=== PATIENT | male | born 1945 | race African-American/Black ===

== ENCOUNTER 2016-04-17 12:35 | Emergency (ER) | payer MEDICARE ==
[~2016-04-17] VITALS: Ht 172.7 cm; Wt 71.2 kg
[~2016-04-17 12:35] MED LIST: ASP81EC PO; ATOR20TA50 PO; Atorvastatin Calcium PO; CAR3125T PO; DIG0125T PO; ENA2.5T PO; FUR20T PO; FUR40T PO; LIS10T PO; MET25T PO; PANT40TA2 PO; POTA10TA34 PO; POTA20TA53 PO; SPIR25TA88 PO
[2016-04-17 13:41] VITALS: BP 135/95
== END 2016-04-17 13:32 | disposition home or self-care (01) ==
LOC: ER 12:38
DX: J20.9 Acute bronchitis, unspecified (principal); I48.91 Unspecified atrial fibrillation; I50.9 Heart failure, unspecified; F17.210 Nicotine dependence, cigarettes, uncomplicated

== ENCOUNTER 2016-09-23 08:29 | Inpatient (IN) | payer MEDICARE, MEDICAID ==
[2016-09-22 21:00] VITALS: BP 131/71
[~2016-09-23] VITALS: Ht 172.7 cm; Wt 73.0 kg
[2016-09-23] MEDS ORDERED: FUROSEMIDE 40 MG/4 ML VIAL IV ONE (09:30)
[2016-09-23 10:05] LABS: Basophils # (auto) 0.1 uL; Basophils % (auto) 0.8 % (0.0-2.0); CONDITION Y; Eosinophils # (auto) 0 uL; Hemoglobin 14.3 g/dL (13.5-17.5); Lymphocytes # (auto) 1.6 uL; Lymphocytes % (auto) 22.9 % (10.0-50.0); Mean Corpuscular Hemoglobin 32.8 pg (28.0-32.0); Mean Corpuscular Hgb Conc. 33.1 g/dL (32.0-36.0); Mean Corpuscular Volume 99.2 fL (80.0-100.0); Monocytes # (auto) 0.7 uL; Monocytes % (auto) 10.2 % (0.0-12.0); Neutrophils # (auto) 4.5 uL; Neutrophils % (auto) 66.1 % (37.0-80.0); Platelet Count (auto) 152 10^3/uL (140-450); Red Cell Distribution Width 16.5 % (11.6-16.0); White Blood Cell 6.8 10^3/uL (4.4-10.8)
[2016-09-23 10:12] LABS: Albumin 2.8 g/dL (3.4-5.0); Bilirubin, Total 0.8 mg/dL (0.2-1.0); Calcium 8.7 mg/dL (8.5-10.1); Magnesium 2.3 mg/dL (1.6-2.6); Potassium 4.2 mmol/L (3.5-5.1); Total Protein 5.9 g/dL (6.4-8.2)
[2016-09-23 10:18] LABS: B-Type Natriuretic Peptide 2491.31 pg/mL (0-100)
[2016-09-23 10:22] LABS: Urine Bilirubin Negative (Negative); Urine Color Yellow (Yellow); Urine Glucose Normal (Normal); Urine Ketone Negative (Negative); Urine Mucus FEW (None Seen); Urine Nitrite Negative (Negative); Urine RBC 1 /hpf (0 - 3); Urine Squamous Epithelial Cell FEW /hpf (<5); Urine Urobilinogen Normal (Negative); Urine pH 5.5 (5.0-8.0)
[2016-09-23 10:25] LABS: Urine Blood 1+ /uL (Negative)
[2016-09-23] MEDS ORDERED: HYDROcodone-ACET 5/325MG TAB PO PRN (10:30)
[2016-09-23] MEDS ORDERED: HYDROmorphone HCL 2 MG/ML VL IV PRN (10:30)
[2016-09-23] MEDS ORDERED: PROMETHAZINE HCL 25 MG/ML 1ML IV PRN (10:30)
[2016-09-23] MEDS ORDERED: DEXTROSE (50%) 50ML SYRG IV PRN (10:30)
[2016-09-23] MEDS ORDERED: ALBUTEROL SULF 2.5 MG/0.5ML(0.5%) NEB SOLN NEB PRN (10:30)
[2016-09-23] MEDS ORDERED: LORazepam 0.5 MG TAB PO PRN (10:30)
[2016-09-23] MEDS ORDERED: ACETAMINOPHEN 500 MG TAB PO PRN (10:30)
[2016-09-23] MEDS ORDERED: MORPHINE SULF INJ 2 MG/ML SYRINGE 1ML IV PRN (10:30)
[2016-09-23] MEDS ORDERED: NITROGLYCERIN 0.4 MG SL TAB SL PRN (10:30)
[2016-09-23] MEDS ORDERED: ENALAPRIL MALEATE 2.5 MG TAB PO ONE (11:00)
[2016-09-23] MEDS ORDERED: CARVEDILOL 3.125 MG TAB PO ONE (11:00)
[2016-09-23] MEDS ORDERED: ASPirin 81 mg TAB PO ONE (11:00)
[2016-09-23] MEDS: LEVOFLOXACIN 500MG 100 ML IV SCH (11:06)
[2016-09-23] MEDS: ENOXAPARIN SOD 40 MG/0.4 ML SYRINGE SC SCH (11:14)
[2016-09-23] MEDS: NITROGLYCERIN 0.2MG/HR TOPICAL PATCH TD SCH (11:14)
[2016-09-23] MEDS: ACCU-CHEK COMFORT CURVE STRIP VI SCH ×3 (11:35→22:19)
[2016-09-23] MEDS: InsuLIN REG 1unit/0.01ml Soln (100units/ml) SC SCH ×3 (11:37→22:00)
[2016-09-23] MEDS: ALBUTEROL SULF 2.5 MG/0.5ML(0.5%) NEB SOLN NEB SCH ×2 (11:40→18:42)
[2016-09-23] MEDS: IPRATROPIUM BROM 0.5 MG/2.5ML INH SOL NEB SCH ×2 (11:40→18:42)
[2016-09-23] MEDS: SODIUM CHLOR 0.9% PF (SALINE LOCK) 10ML VIAL IV SCH ×2 (14:10→22:19)
[2016-09-23 20:53] VITALS: BP 131/71
[2016-09-23] MEDS: ATORVASTATIN 20 MG TAB PO SCH (22:19)
[2016-09-23] MEDS: CARVEDILOL 3.125 MG TAB PO SCH (22:20)
[2016-09-24] VITALS (8 sets, daily range): BP systolic 104–132; BP diastolic 71–94
[2016-09-24] MEDS: TEMAZEPAM 15 MG CAP PO PRN (00:22)
[2016-09-24] MEDS: ALBUTEROL SULF 2.5 MG/0.5ML(0.5%) NEB SOLN NEB SCH ×4 (00:42→18:56)
[2016-09-24] MEDS: IPRATROPIUM BROM 0.5 MG/2.5ML INH SOL NEB SCH ×4 (00:42→18:56)
[2016-09-24] MEDS: SODIUM CHLOR 0.9% PF (SALINE LOCK) 10ML VIAL IV SCH ×3 (05:24→21:18)
[2016-09-24] MEDS: ACCU-CHEK COMFORT CURVE STRIP VI SCH ×4 (05:25→21:18)
[2016-09-24] MEDS: InsuLIN REG 1unit/0.01ml Soln (100units/ml) SC SCH ×4 (06:23→21:17)
[2016-09-24 06:29] LABS: Basophils # (auto) 0 uL; Basophils % (auto) 0.3 % (0.0-2.0); CONDITION Y; Eosinophils # (auto) 0 uL; Eosinophils % (auto) 0.5 % (0.0-7.0); Hematocrit 45.8 % (41.0-53.0); Lymphocytes # (auto) 2.2 uL; Lymphocytes % (auto) 26.7 % (10.0-50.0); Mean Corpuscular Hemoglobin 32.6 pg (28.0-32.0); Mean Corpuscular Hgb Conc. 32.7 g/dL (32.0-36.0); Mean Corpuscular Volume 99.8 fL (80.0-100.0); Monocytes # (auto) 1.3 uL; Monocytes % (auto) 15.5 % (0.0-12.0); Neutrophils # (auto) 4.6 uL; Platelet Count (auto) 147 10^3/uL (140-450); White Blood Cell 8.1 10^3/uL (4.4-10.8)
[2016-09-24 06:35] LABS: Albumin 2.6 g/dL (3.4-5.0); BUN/Creatinine Ratio 20.2; Bilirubin, Total 0.9 mg/dL (0.2-1.0); Calcium 9.2 mg/dL (8.5-10.1); Potassium 4.5 mmol/L (3.5-5.1); Total Protein 5.8 g/dL (6.4-8.2)
[2016-09-24 07:35] LABS: B-Type Natriuretic Peptide 939 pg/mL (0-100)
[2016-09-24] MEDS ORDERED: ENOXAPARIN SOD 40 MG/0.4 ML SYRINGE SC SCH (10:00)
[2016-09-24] MEDS: POTASSIUM CHL 20 Meq TABLET PO SCH (10:02)
[2016-09-24] MEDS: ENALAPRIL MALEATE 2.5 MG TAB PO SCH (10:03)
[2016-09-24] MEDS: ASPirin 81 mg TAB PO SCH (10:03)
[2016-09-24] MEDS: CARVEDILOL 3.125 MG TAB PO SCH ×2 (10:04→21:57)
[2016-09-24] MEDS: ENOXAPARIN SOD 40 MG/0.4 ML SYRINGE SC SCH (10:05)
[2016-09-24] MEDS: NITROGLYCERIN 0.2MG/HR TOPICAL PATCH TD SCH (10:08)
[2016-09-24] MEDS: LEVOFLOXACIN 500MG 100 ML IV SCH (10:08)
[2016-09-24] MEDS: FUROSEMIDE 40 MG/4 ML VIAL IV SCH (10:10)
[2016-09-24] MEDS: ATORVASTATIN 20 MG TAB PO SCH (21:57)
[2016-09-25] MEDS: ALBUTEROL SULF 2.5 MG/0.5ML(0.5%) NEB SOLN NEB SCH ×4 (01:16→18:39)
[2016-09-25] MEDS: IPRATROPIUM BROM 0.5 MG/2.5ML INH SOL NEB SCH ×4 (01:16→18:38)
[2016-09-25 05:30] VITALS: BP 141/89
[2016-09-25] MEDS: SODIUM CHLOR 0.9% PF (SALINE LOCK) 10ML VIAL IV SCH ×3 (05:53→22:04)
[2016-09-25] MEDS: ACCU-CHEK COMFORT CURVE STRIP VI SCH ×4 (05:53→22:04)
[2016-09-25] MEDS: InsuLIN REG 1unit/0.01ml Soln (100units/ml) SC SCH ×4 (06:16→22:00)
[2016-09-25] MEDS: POTASSIUM CHL 20 Meq TABLET PO SCH (10:36)
[2016-09-25] MEDS: ASPirin 81 mg TAB PO SCH (10:36)
[2016-09-25] MEDS: LEVOFLOXACIN 500MG 100 ML IV SCH (10:36)
[2016-09-25] MEDS: FUROSEMIDE 40 MG/4 ML VIAL IV SCH (10:42)
[2016-09-25] MEDS: ENALAPRIL MALEATE 2.5 MG TAB PO SCH (10:43)
[2016-09-25] MEDS: NITROGLYCERIN 0.2MG/HR TOPICAL PATCH TD SCH (10:45)
[2016-09-25] MEDS: ENOXAPARIN SOD 40 MG/0.4 ML SYRINGE SC SCH (10:45)
[2016-09-25] MEDS: CARVEDILOL 3.125 MG TAB PO SCH ×2 (10:46→22:04)
[2016-09-25 13:00] VITALS: BP 126/72
[2016-09-25 14:56] LABS: Urine Bilirubin Negative (Negative); Urine Color Yellow (Yellow); Urine Glucose Normal (Normal); Urine Ketone Negative (Negative); Urine Nitrite Negative (Negative); Urine RBC 725 /hpf (0 - 3); Urine Urobilinogen Normal (Negative); Urine pH 6.5 (5.0-8.0)
[2016-09-25 14:57] LABS: Urine Blood 3+ /uL (Negative)
[2016-09-25 17:00] VITALS: BP 115/61
[2016-09-25 20:00] VITALS: BP 124/88
[2016-09-25 21:39] VITALS: BP 124/88
[2016-09-25] MEDS: ATORVASTATIN 20 MG TAB PO SCH (22:04)
[2016-09-26] MEDS: IPRATROPIUM BROM 0.5 MG/2.5ML INH SOL NEB SCH ×4 (00:15→19:30)
[2016-09-26] MEDS: ALBUTEROL SULF 2.5 MG/0.5ML(0.5%) NEB SOLN NEB SCH ×4 (00:15→19:30)
[2016-09-26 05:12] VITALS: BP 136/95
[2016-09-26] MEDS: SODIUM CHLOR 0.9% PF (SALINE LOCK) 10ML VIAL IV SCH ×3 (05:55→23:03)
[2016-09-26] MEDS: InsuLIN REG 1unit/0.01ml Soln (100units/ml) SC SCH ×5 (06:10→22:00)
[2016-09-26] MEDS: ACCU-CHEK COMFORT CURVE STRIP VI SCH ×4 (06:11→22:14)
[2016-09-26] MEDS ORDERED: GASTROGRAFIN 30 ML SOL ONE (07:12)
[2016-09-26 09:00] VITALS: BP 139/103
[2016-09-26 10:07] VITALS: BP 135/90
[2016-09-26 10:14] LABS: Potassium 4.4 mmol/L (3.5-5.1)
[2016-09-26] MEDS: FUROSEMIDE 40 MG/4 ML VIAL IV SCH ×2 (10:32→17:54)
[2016-09-26] MEDS: LEVOFLOXACIN 500MG 100 ML IV SCH (10:32)
[2016-09-26 13:00] VITALS: BP 143/96
[2016-09-26] MEDS ORDERED: ENOXAPARIN SOD 80 MG/0.8ML SYRINGE SC ONE (14:45)
[2016-09-26] MEDS: CARVEDILOL 3.125 MG TAB PO SCH ×2 (15:10→23:03)
[2016-09-26] MEDS: POTASSIUM CHL 20 Meq TABLET PO SCH ×2 (15:10→23:02)
[2016-09-26] MEDS: ENALAPRIL MALEATE 2.5 MG TAB PO SCH ×2 (15:10→23:03)
[2016-09-26 17:00] VITALS: BP 118/69
[2016-09-26 22:00] VITALS: BP 110/63
[2016-09-26] MEDS: ATORVASTATIN 20 MG TAB PO SCH (23:02)
[2016-09-27] MEDS: ALBUTEROL SULF 2.5 MG/0.5ML(0.5%) NEB SOLN NEB SCH ×4 (00:30→19:17)
[2016-09-27] MEDS: IPRATROPIUM BROM 0.5 MG/2.5ML INH SOL NEB SCH ×4 (00:30→19:17)
[2016-09-27 01:09] VITALS: BP 110/63
[2016-09-27 05:00] VITALS: BP 143/100
[2016-09-27 05:11] LABS: Basophils # (auto) 0 uL; Basophils % (auto) 0.4 % (0.0-2.0); CONDITION Y; Eosinophils # (auto) 0.1 uL; Eosinophils % (auto) 0.9 % (0.0-7.0); Hematocrit 48.7 % (41.0-53.0); Hemoglobin 15.7 g/dL (13.5-17.5); Lymphocytes # (auto) 2.1 uL; Lymphocytes % (auto) 33.2 % (10.0-50.0); Mean Corpuscular Hemoglobin 32.4 pg (28.0-32.0); Mean Corpuscular Hgb Conc. 32.3 g/dL (32.0-36.0); Mean Corpuscular Volume 100.5 fL (80.0-100.0); Mean Platelet Volume 10.7 fL (7.4-10.4); Monocytes # (auto) 0.8 uL; Monocytes % (auto) 13.6 % (0.0-12.0); Neutrophils # (auto) 3.2 uL; Neutrophils % (auto) 51.9 % (37.0-80.0); Platelet Count (auto) 162 10^3/uL (140-450); Red Cell Distribution Width 15.8 % (11.6-16.0); White Blood Cell 6.2 10^3/uL (4.4-10.8)
[2016-09-27 05:25] LABS: INR 1.2 (0.9-1.15)
[2016-09-27 05:27] LABS: Albumin 2.5 g/dL (3.4-5.0); BUN/Creatinine Ratio 17.3; Calcium 9.2 mg/dL (8.5-10.1); Potassium 4.5 mmol/L (3.5-5.1); Prothrombin Time 13.1 sec (9.37-12.3)
[2016-09-27] MEDS: SODIUM CHLOR 0.9% PF (SALINE LOCK) 10ML VIAL IV SCH ×3 (06:20→22:33)
[2016-09-27] MEDS: FUROSEMIDE 40 MG/4 ML VIAL IV SCH ×2 (06:20→18:00)
[2016-09-27] MEDS: ACCU-CHEK COMFORT CURVE STRIP VI SCH ×4 (07:00→22:00)
[2016-09-27] MEDS: InsuLIN REG 1unit/0.01ml Soln (100units/ml) SC SCH ×4 (07:00→22:00)
[2016-09-27 07:51] VITALS: BP 137/82
[2016-09-27] MEDS ORDERED: fentaNYL CITRATE 100 MCG/2 ML VL IV ONE (08:00)
[2016-09-27] MEDS ORDERED: MIDAZOLAM HCL 5 MG/ML-1ML VIAL IV ONE (08:00)
[2016-09-27] MEDS ORDERED: LIDOCAINE VISCOUS 2% 15ML UD PO ONE (08:00)
[2016-09-27 08:06] LABS: PSA Free 0.44 ng/mL; Prostate Specific Antigen 3.7 ng/mL (0.0-4.0)
[2016-09-27] MEDS ORDERED: NALOXONE HCL 0.4 MG/ML VIAL ONE (08:09)
[2016-09-27] MEDS ORDERED: FLUMAZENIL 0.1 MG/ML INJ 10ML MDV IV ONE (08:09)
[2016-09-27] MEDS ORDERED: MIDAZOLAM HCL 1MG/1ML-2 ML VIAL ONE (08:10)
[2016-09-27] MEDS ORDERED: IODIXANOL 320MG/ML 100ML BTL IV ONE (09:41)
[2016-09-27] MEDS ORDERED: LIDOCAINE 2%HCL (LOCAL ANESTH.) INJ 20ML MDV ONE (09:41)
[2016-09-27] MEDS: ENALAPRIL MALEATE 2.5 MG TAB PO SCH ×2 (10:00→22:30)
[2016-09-27] MEDS: CARVEDILOL 3.125 MG TAB PO SCH ×2 (10:00→22:31)
[2016-09-27] MEDS: LEVOFLOXACIN 500MG 100 ML IV SCH (10:00)
[2016-09-27] MEDS: POTASSIUM CHL 20 Meq TABLET PO SCH ×2 (10:00→22:31)
[2016-09-27] MEDS ORDERED: VERAPAMIL 2.5MG/ML INJ 2ML VIAL IV ONE (10:16)
[2016-09-27] MEDS ORDERED: SODIUM CHL 0.9% 0 ML ONE (10:16)
[2016-09-27] MEDS ORDERED: ANGIOMAX 250 MG VIAL IV ONE (10:16)
[2016-09-27] MEDS ORDERED: HEPARIN SODIUM (PORCINE) 5000 UNITS/ML 1ML VIAL ONE (10:40)
[2016-09-27 12:50] VITALS: BP 144/94
[2016-09-27 16:35] VITALS: BP 122/81
[2016-09-27 22:00] VITALS: BP 116/71
[2016-09-27] MEDS: ATORVASTATIN 20 MG TAB PO SCH (22:30)
[2016-09-28] MEDS: IPRATROPIUM BROM 0.5 MG/2.5ML INH SOL NEB SCH ×4 (00:20→19:05)
[2016-09-28] MEDS: ALBUTEROL SULF 2.5 MG/0.5ML(0.5%) NEB SOLN NEB SCH ×4 (00:20→19:05)
[2016-09-28 05:00] VITALS: BP 123/78
[2016-09-28 06:21] LABS: Basophils # (auto) 0 uL; Basophils % (auto) 0.4 % (0.0-2.0); CONDITION Y; Eosinophils # (auto) 0.1 uL; Eosinophils % (auto) 1.9 % (0.0-7.0); Hemoglobin 15.9 g/dL (13.5-17.5); Lymphocytes # (auto) 1.7 uL; Lymphocytes % (auto) 28.9 % (10.0-50.0); Mean Corpuscular Hemoglobin 32.5 pg (28.0-32.0); Mean Corpuscular Hgb Conc. 32.5 g/dL (32.0-36.0); Monocytes # (auto) 0.7 uL; Monocytes % (auto) 11.8 % (0.0-12.0); Neutrophils # (auto) 3.3 uL; Platelet Count (auto) 172 10^3/uL (140-450); Red Cell Distribution Width 15.9 % (11.6-16.0); White Blood Cell 5.8 10^3/uL (4.4-10.8)
[2016-09-28] MEDS: ACCU-CHEK COMFORT CURVE STRIP VI SCH ×4 (06:32→22:00)
[2016-09-28] MEDS: InsuLIN REG 1unit/0.01ml Soln (100units/ml) SC SCH ×4 (06:32→22:00)
[2016-09-28] MEDS: SODIUM CHLOR 0.9% PF (SALINE LOCK) 10ML VIAL IV SCH ×3 (06:37→22:55)
[2016-09-28] MEDS: FUROSEMIDE 40 MG/4 ML VIAL IV SCH ×2 (06:37→09:30)
[2016-09-28 07:01] LABS: BUN/Creatinine Ratio 16.7; Calcium 9.2 mg/dL (8.5-10.1); Potassium 4.4 mmol/L (3.5-5.1)
[2016-09-28 07:06] LABS: Prostate Specific Antigen 3.3 ng/mL (0.0-4.0)
[2016-09-28 08:00] VITALS: BP 123/78
[2016-09-28 08:06] LABS: PSA Free 0.46 ng/mL
[2016-09-28 09:00] VITALS: BP 130/53
[2016-09-28] MEDS: AMOXICILLIN/CLAVUL 875 MG TAB PO SCH ×2 (09:30→22:47)
[2016-09-28] MEDS: ENALAPRIL MALEATE 2.5 MG TAB PO SCH ×2 (09:31→22:00)
[2016-09-28] MEDS: CARVEDILOL 3.125 MG TAB PO SCH ×2 (09:31→22:50)
[2016-09-28] MEDS: POTASSIUM CHL 20 Meq TABLET PO SCH (09:31)
[2016-09-28 12:34] VITALS: BP 104/69
[2016-09-28 17:00] VITALS: BP 100/55
[2016-09-28 22:00] VITALS: BP 97/51
[2016-09-28] MEDS: ATORVASTATIN 20 MG TAB PO SCH (22:47)
[2016-09-28] MEDS: TEMAZEPAM 15 MG CAP PO PRN (22:50)
[2016-09-29] MEDS: IPRATROPIUM BROM 0.5 MG/2.5ML INH SOL NEB SCH ×3 (00:15→12:10)
[2016-09-29] MEDS: ALBUTEROL SULF 2.5 MG/0.5ML(0.5%) NEB SOLN NEB SCH ×3 (00:15→12:10)
[2016-09-29 05:00] VITALS: BP 122/75
[2016-09-29] MEDS: InsuLIN REG 1unit/0.01ml Soln (100units/ml) SC SCH ×3 (05:37→17:00)
[2016-09-29] MEDS: SODIUM CHLOR 0.9% PF (SALINE LOCK) 10ML VIAL IV SCH ×2 (06:00→13:13)
[2016-09-29] MEDS: ACCU-CHEK COMFORT CURVE STRIP VI SCH ×3 (06:43→17:00)
[2016-09-29 06:53] LABS: Potassium 4.3 mmol/L (3.5-5.1)
[2016-09-29 07:10] LABS: BUN/Creatinine Ratio 18.9
[2016-09-29 08:00] VITALS: BP 127/82
[2016-09-29 09:00] VITALS: BP 127/82
[2016-09-29] MEDS ORDERED: fentaNYL CITRATE 100 MCG/2 ML VL ONE (10:47)
[2016-09-29] MEDS ORDERED: SODIUM CHLORIDE LOCK 10 ML ONE (10:47)
[2016-09-29] MEDS ORDERED: MIDAZOLAM HCL 1MG/1ML-2 ML VIAL ONE (10:47)
[2016-09-29] MEDS ORDERED: KETAMINE HCL 1 ML ONE (10:50)
[2016-09-29] MEDS ORDERED: LIDOCAINE 2% JELLY 11ml (GLYDO) ONE (10:50)
[2016-09-29] MEDS ORDERED: ceFAZolin 1GM/50ML D5W 50 ML IV ONE (10:54)
[2016-09-29] MEDS ORDERED: ACCU-CHEK COMFORT CURVE STRIP VI ONE (11:45)
[2016-09-29] MEDS ORDERED: HYDROmorphone HCL 2 MG/ML VL IV PRN (11:45)
[2016-09-29] MEDS ORDERED: METOCLOPRAMIDE HCL 5MG/ml INJ 2ml VIAL IV ONE (11:45)
[2016-09-29] MEDS: FUROSEMIDE 40 MG/4 ML VIAL IV SCH (12:31)
[2016-09-29] MEDS: POTASSIUM CHL 20 Meq TABLET PO SCH (12:32)
[2016-09-29] MEDS: ENALAPRIL MALEATE 2.5 MG TAB PO SCH (12:32)
[2016-09-29] MEDS: AMOXICILLIN/CLAVUL 875 MG TAB PO SCH (12:32)
[2016-09-29 13:00] VITALS: BP 136/89
[2016-09-29 16:12] VITALS: BP 136/89
== END 2016-09-29 17:08 | DRG 280 ==
LOC: ER 08:29 → EDUNIT# 08:30 → TELE 08:30 → TELE-EAST 20:57
PROVIDERS: ADMIT Internal Medicine; ATTEND Internal Medicine
PROC: B2111ZZ Fluoroscopy of Multiple Coronary Arteries using Low Osmolar Contrast (ICD-10-PCS; principal; 2016-09-27)
PROC: B246ZZ4 Ultrasonography of Right and Left Heart, Transesophageal (ICD-10-PCS; 2016-09-27)
PROC: 4A023N7 Measurement of Cardiac Sampling and Pressure, Left Heart, Percutaneous Approach (ICD-10-PCS; 2016-09-27)
DX: I21.4 Non-ST elevation (NSTEMI) myocardial infarction (principal); I50.41 Acute combined systolic (congestive) and diastolic (congestive) heart failure; J18.9 Pneumonia, unspecified organism; I13.0 Hypertensive heart and chronic kidney disease with heart failure and stage 1 through stage 4 chronic kidney disease, or unspecified chronic kidney disease; E44.0 Moderate protein-calorie malnutrition; R07.9 Chest pain, unspecified; J44.9 Chronic obstructive pulmonary disease, unspecified; N18.9 Chronic kidney disease, unspecified; R33.9 Retention of urine, unspecified; N43.3 Hydrocele, unspecified; N50.89 Other specified disorders of the male genital organs
CPT/HCPCS: 36415; 51702; 71010; 71020; 74176; 76775; 76870; 80048; 80053; 80061; 80307; 81001; 82040; 82550; 82962; 83036; 83735; 83880; 84154; 84443; 84484; 85025; 85379; 85610; 85652; 86141; 86850; 86900; 86901; 87493; 93005; 93306; 93312; 94640; 96374; 97110; 97116; 97163; 97530; 99152; J0690; J1956; J2250; Q9967

== ENCOUNTER 2017-01-06 14:03 | Inpatient (IN) | payer MEDICARE, MEDICAID ==
[~2017-01-06] VITALS: Ht 172.7 cm; Wt 83.3 kg
[~2017-01-06 14:03] MED LIST changes: +ASPI81CH43 PO; +ENA10T PO; +FURO40TA4 PO; +LEVO500T21 PO; +NITR-48 PO; +SACC250C PO
[2017-01-06 14:35] LABS: Basophils # (auto) 0.1 uL; Basophils % (auto) 0.8 % (0.0-2.0); Eosinophils # (auto) 0 uL; Eosinophils % (auto) 0.6 % (0.0-7.0); Hemoglobin 11.6 g/dL (13.5-17.5); Lymphocytes # (auto) 1.9 uL; Lymphocytes % (auto) 29.2 % (10.0-50.0); Mean Corpuscular Hemoglobin 32.6 pg (28.0-32.0); Mean Corpuscular Hgb Conc. 32.4 g/dL (32.0-36.0); Mean Corpuscular Volume 100.8 fL (80.0-100.0); Monocytes # (auto) 1.2 uL; Monocytes % (auto) 17.8 % (0.0-12.0); Neutrophils # (auto) 3.4 uL; Neutrophils % (auto) 51.6 % (37.0-80.0); Nucleated Red Blood Cells % 0.1 %; Platelet Count (auto) 119 10^3/uL (140-450); Red Blood Cells 3.57 10^6/uL (4.5-5.90); Red Cell Distribution Width 17.6 % (11.8-14.3); White Blood Cell 6.7 10^3/uL (4.4-10.8)
[2017-01-06 15:03] LABS: BUN/Creatinine Ratio 21.6; Bilirubin, Total 0.7 mg/dL (0.2-1.0); Calcium 9.2 mg/dL (8.5-10.1); Potassium 4.8 mmol/L (3.5-5.1); Total Protein 7.5 g/dL (6.4-8.2)
[2017-01-06] MEDS ORDERED: cefTRIAXone 1GM/50ML D5W 50 ML IV ONE (17:15)
[2017-01-06] MEDS ORDERED: AZITHROMYCIN 500MG/ 250ML 250 ML IV ONE ×2 (17:15→22:30)
[2017-01-06] MEDS ORDERED: FUROSEMIDE 40 MG/4 ML VIAL IV ONE (17:15)
[2017-01-06] MEDS ORDERED: DEXTROSE (50%) 50ML SYRG IV PRN (21:15)
[2017-01-06] MEDS ORDERED: MORPHINE SULFATE 10 MG/ML INJ 1ML SDV IV PRN (21:15)
[2017-01-06 21:19] LABS: Urine WBC None Seen /hpf (0 - 3)
[2017-01-06] MEDS ORDERED: ASPirin 81 mg TAB PO ONE (21:30)
[2017-01-06] MEDS: InsuLIN REG 1unit/0.01ml Soln (100units/ml) SC SCH (21:43)
[2017-01-06] MEDS: ACCU-CHEK COMFORT CURVE STRIP VI SCH (21:43)
[2017-01-06] MEDS ORDERED: ONDANSETRON HCL 4 MG/2 ML VIAL IV PRN (21:45)
[2017-01-06] MEDS ORDERED: TEMAZEPAM 15 MG CAP PO PRN (21:45)
[2017-01-06] MEDS ORDERED: ACETAMINOPHEN 500 MG TAB PO PRN (21:45)
[2017-01-06] MEDS: CARVEDILOL 3.125 MG TAB PO SCH (21:47)
[2017-01-06] MEDS: ATORVASTATIN 20 MG TAB PO SCH (21:48)
[2017-01-06 21:52] LABS: Urine Amorphous Crystal MOD /hpf (None Seen); Urine Bacteria FEW /hpf (None Seen); Urine Blood Negative /uL (Negative); Urine Mucus FEW (None Seen); Urine Specific Gravity 1.028 (1.001-1.035)
[2017-01-06] MEDS: LEVOFLOXACIN 500MG 100 ML IV SCH (22:00)
[2017-01-06 22:30] VITALS: BP 109/52
[2017-01-06] MEDS: HYDROcodone-ACET 5/325MG TAB PO PRN (22:56)
[2017-01-06 23:29] VITALS: BP 109/52
[2017-01-07] VITALS (7 sets, daily range): BP systolic 106–118; BP diastolic 70–78
[2017-01-07] MEDS: ENALAPRIL MALEATE 2.5 MG TAB PO SCH ×3 (00:15→22:26)
[2017-01-07] MEDS ORDERED: NITR-52 PO (01:41)
[2017-01-07] MEDS ORDERED: FURO40TA4 PO (01:41)
[2017-01-07] MEDS ORDERED: CARV3.1240 PO (01:41)
[2017-01-07] MEDS ORDERED: ENAL2.5T PO (01:41)
[2017-01-07] MEDS ORDERED: ATOR10TA52 PO (01:41)
[2017-01-07] MEDS ORDERED: POTA10TA51 PO (01:41)
[2017-01-07] MEDS: InsuLIN REG 1unit/0.01ml Soln (100units/ml) SC SCH ×4 (06:22→22:00)
[2017-01-07] MEDS: ACCU-CHEK COMFORT CURVE STRIP VI SCH ×4 (06:23→22:27)
[2017-01-07 06:31] LABS: Basophils # (auto) 0 uL; Basophils % (auto) 0.4 % (0.0-2.0); Eosinophils # (auto) 0.1 uL; Eosinophils % (auto) 1.4 % (0.0-7.0); Hematocrit 36.7 % (41.0-53.0); Hemoglobin 11.9 g/dL (13.5-17.5); Lymphocytes % (auto) 32.4 % (10.0-50.0); Mean Corpuscular Hemoglobin 32.5 pg (28.0-32.0); Mean Corpuscular Hgb Conc. 32.4 g/dL (32.0-36.0); Mean Corpuscular Volume 100.2 fL (80.0-100.0); Monocytes # (auto) 0.8 uL; Monocytes % (auto) 12.8 % (0.0-12.0); Neutrophils # (auto) 3.2 uL; Nucleated Red Blood Cells % 0.3 %; Platelet Count (auto) 123 10^3/uL (140-450); Red Blood Cells 3.66 10^6/uL (4.5-5.90); Red Cell Distribution Width 17.5 % (11.8-14.3); White Blood Cell 6.1 10^3/uL (4.4-10.8)
[2017-01-07 06:33] LABS: BUN/Creatinine Ratio 25.8; Calcium 9.3 mg/dL (8.5-10.1)
[2017-01-07] MEDS: cefTRIAXone 1GM/50ML D5W 50 ML IV SCH (09:13)
[2017-01-07] MEDS ORDERED: FUROSEMIDE 20 MG TAB PO SCH (10:00)
[2017-01-07] MEDS: LEVOFLOXACIN 500MG 100 ML IV SCH (10:45)
[2017-01-07] MEDS: ASPirin 81 mg TAB PO SCH (10:45)
[2017-01-07] MEDS: FUROSEMIDE 40 MG/4 ML VIAL IV SCH (10:45)
[2017-01-07] MEDS: CARVEDILOL 3.125 MG TAB PO SCH ×2 (10:46→22:00)
[2017-01-07] MEDS: POTASSIUM CHL 10 Meq TABLET PO SCH (10:46)
[2017-01-07] MEDS: HYDROcodone-ACET 5/325MG TAB PO PRN (17:41)
[2017-01-07] MEDS: ATORVASTATIN 20 MG TAB PO SCH (22:26)
[2017-01-08] MEDS: HYDROcodone-ACET 5/325MG TAB PO PRN ×4 (00:59→22:16)
[2017-01-08 05:00] VITALS: BP 126/69
[2017-01-08] MEDS: InsuLIN REG 1unit/0.01ml Soln (100units/ml) SC SCH ×4 (06:30→22:00)
[2017-01-08] MEDS: ACCU-CHEK COMFORT CURVE STRIP VI SCH ×4 (06:30→22:16)
[2017-01-08 07:59] VITALS: BP 115/70
[2017-01-08] MEDS: cefTRIAXone 1GM/50ML D5W 50 ML IV SCH (09:48)
[2017-01-08] MEDS: ENALAPRIL MALEATE 2.5 MG TAB PO SCH ×2 (09:49→22:00)
[2017-01-08] MEDS: POTASSIUM CHL 10 Meq TABLET PO SCH (09:49)
[2017-01-08] MEDS: CARVEDILOL 3.125 MG TAB PO SCH ×2 (09:49→22:00)
[2017-01-08] MEDS: FUROSEMIDE 40 MG/4 ML VIAL IV SCH (09:49)
[2017-01-08] MEDS: LEVOFLOXACIN 500MG 100 ML IV SCH (09:50)
[2017-01-08] MEDS: ASPirin 81 mg TAB PO SCH (09:50)
[2017-01-08 12:32] VITALS: BP 112/73
[2017-01-08] MEDS ORDERED: FUROSEMIDE 20 MG TAB PO ONE (13:45)
[2017-01-08 16:45] VITALS: BP 122/69
[2017-01-08 22:00] VITALS: BP 112/77
[2017-01-08] MEDS: ATORVASTATIN 20 MG TAB PO SCH (22:16)
[2017-01-09 05:00] VITALS: BP 122/73
[2017-01-09] MEDS: ACCU-CHEK COMFORT CURVE STRIP VI SCH ×3 (06:30→17:00)
[2017-01-09] MEDS: InsuLIN REG 1unit/0.01ml Soln (100units/ml) SC SCH ×3 (06:33→17:00)
[2017-01-09 07:00] LABS: Basophils # (auto) 0 uL; Basophils % (auto) 0.3 % (0.0-2.0); Eosinophils # (auto) 0 uL; Eosinophils % (auto) 0.7 % (0.0-7.0); Hemoglobin 11.8 g/dL (13.5-17.5); Lymphocytes # (auto) 1.7 uL; Lymphocytes % (auto) 27.7 % (10.0-50.0); Mean Corpuscular Hemoglobin 32.1 pg (28.0-32.0); Mean Corpuscular Hgb Conc. 32.7 g/dL (32.0-36.0); Mean Corpuscular Volume 98.2 fL (80.0-100.0); Monocytes # (auto) 0.8 uL; Monocytes % (auto) 13.9 % (0.0-12.0); Neutrophils # (auto) 3.5 uL; Neutrophils % (auto) 57.4 % (37.0-80.0); Nucleated Red Blood Cells % 0.1 %; Platelet Count (auto) 115 10^3/uL (140-450); Red Blood Cells 3.67 10^6/uL (4.5-5.90); Red Cell Distribution Width 17.1 % (11.8-14.3)
[2017-01-09 09:07] VITALS: BP 113/87
[2017-01-09] MEDS: POTASSIUM CHL 10 Meq TABLET PO SCH (09:27)
[2017-01-09] MEDS: ENALAPRIL MALEATE 2.5 MG TAB PO SCH (09:27)
[2017-01-09] MEDS: CARVEDILOL 3.125 MG TAB PO SCH (09:28)
[2017-01-09] MEDS: cefTRIAXone 1GM/50ML D5W 50 ML IV SCH (09:28)
[2017-01-09] MEDS: ASPirin 81 mg TAB PO SCH (09:28)
[2017-01-09] MEDS ORDERED: FUROSEMIDE 20 MG TAB PO SCH (10:00)
[2017-01-09] MEDS ORDERED: ENOXAPARIN SOD 40 MG/0.4 ML SYRINGE SC SCH ×2 (10:00)
[2017-01-09] MEDS ORDERED: SACC250C PO (13:05)
[2017-01-09] MEDS ORDERED: ASPI81CH43 PO (13:05)
[2017-01-09] MEDS ORDERED: CEPH-37 PO (13:05)
== END 2017-01-09 17:11 | disposition home health service (06) | DRG 291 ==
LOC: ER 14:03 → TELE 14:04 → TELE-WESTW 22:30
PROVIDERS: ADMIT Nurse Practitioner Family; ATTEND Internal Medicine
DX: I11.0 Hypertensive heart disease with heart failure (principal); J18.9 Pneumonia, unspecified organism; E44.0 Moderate protein-calorie malnutrition; I71.2 Thoracic aortic aneurysm, without rupture; L03.115 Cellulitis of right lower limb; I42.9 Cardiomyopathy, unspecified; E44.1 Mild protein-calorie malnutrition; F20.9 Schizophrenia, unspecified; J44.0 Chronic obstructive pulmonary disease with (acute) lower respiratory infection; I50.33 Acute on chronic diastolic (congestive) heart failure; E78.5 Hyperlipidemia, unspecified; E11.9 Type 2 diabetes mellitus without complications; I25.10 Atherosclerotic heart disease of native coronary artery without angina pectoris; F19.10 Other psychoactive substance abuse, uncomplicated; F03.90 Unspecified dementia, unspecified severity, without behavioral disturbance, psychotic disturbance, mood disturbance, and anxiety; K40.90 Unilateral inguinal hernia, without obstruction or gangrene, not specified as recurrent; Z87.891 Personal history of nicotine dependence; Z79.899 Other long term (current) drug therapy; Z82.49 Family history of ischemic heart disease and other diseases of the circulatory system; Z86.73 Personal history of transient ischemic attack (TIA), and cerebral infarction without residual deficits; Z83.3 Family history of diabetes mellitus; Z91.19 Patient's noncompliance with other medical treatment and regimen; Z68.27 Body mass index [BMI] 27.0-27.9, adult
CPT/HCPCS: 36415; 71010; 71020; 73590; 74176; 80048; 80053; 81001; 82962; 83605; 83880; 84132; 84484; 85025; 85652; 87040; 93005; 93971; 96365; 96368; 96375; J0696; J1815; J1956; J2405

== ENCOUNTER 2017-03-22 14:23 | Inpatient (IN) | payer MEDICARE, MEDICAID ==
[~2017-03-22] VITALS: Ht 172.7 cm; Wt 71.0 kg
[~2017-03-22 14:23] MED LIST changes: -ASP81EC PO; +ATOR10TA52 PO; -ATOR20TA50 PO; -Atorvastatin Calcium PO; -CAR3125T PO; +CARV3.1240 PO; +CEPH-37 PO; -DIG0125T PO; -ENA10T PO; -ENA2.5T PO; +ENAL2.5T PO; -FUR20T PO; -FUR40T PO; -LEVO500T21 PO; -LIS10T PO; -MET25T PO; -NITR-48 PO; -PANT40TA2 PO; -POTA10TA34 PO; +POTA10TA51 PO; -POTA20TA53 PO; -SPIR25TA88 PO
[2017-03-22 16:01] LABS: Basophils # (auto) 0 uL; Basophils % (auto) 0.4 % (0.0-2.0); Eosinophils # (auto) 0 uL; Eosinophils % (auto) 0.2 % (0.0-7.0); Hematocrit 46.9 % (41.0-53.0); Lymphocytes # (auto) 1.5 uL; Lymphocytes % (auto) 34.1 % (10.0-50.0); Mean Corpuscular Hemoglobin 31.5 pg (28.0-32.0); Mean Corpuscular Hgb Conc. 32.1 g/dL (32.0-36.0); Monocytes # (auto) 0.7 uL; Monocytes % (auto) 15.3 % (0.0-12.0); Neutrophils # (auto) 2.1 uL; Nucleated Red Blood Cells % 0.4 %; Platelet Count (auto) 93 10^3/uL (140-450); Red Blood Cells 4.78 10^6/uL (4.5-5.90); Red Cell Distribution Width 18.6 % (11.8-14.3); White Blood Cell 4.3 10^3/uL (4.4-10.8)
[2017-03-22 16:08] LABS: BUN/Creatinine Ratio 17.5; Potassium 3.8 mmol/L (3.5-5.1)
[2017-03-22 16:09] LABS: Albumin 2.9 g/dL (3.4-5.0); Bilirubin, Total 1.4 mg/dL (0.2-1.0); Calcium 8.6 mg/dL (8.5-10.1); Magnesium 2.2 mg/dL (1.6-2.6); Total Protein 7.1 g/dL (6.4-8.2)
[2017-03-22] MEDS ORDERED: FUROSEMIDE 40 MG/4 ML VIAL IV ONE (21:00)
[2017-03-22] MEDS ORDERED: cefTRIAXone 1GM/10ml IVPUSH 10 ML IV ONE (21:00)
[2017-03-22 21:20] LABS: INR 1.23 (0.9-1.15); Partial Thromboplastin Time 24.7 sec (22.64-33.71); Prothrombin Time 13.4 sec (9.37-12.3)
[2017-03-22 22:10] LABS: Lactic Acid w/Reflex 3.2 mmol/L (0.4-2.0)
[2017-03-23] VITALS (7 sets, daily range): BP systolic 102–126; BP diastolic 58–85
[2017-03-23] MEDS ORDERED: TEMAZEPAM 15 MG CAP PO PRN
[2017-03-23] MEDS ORDERED: ALBUTEROL SULF 2.5 MG/0.5ML(0.5%) NEB SOLN NEB PRN
[2017-03-23] MEDS ORDERED: NITROGLYCERIN 0.4 MG SL TAB SL PRN
[2017-03-23] MEDS ORDERED: MORPHINE SULF INJ 2 MG/ML SYRINGE 1ML IV PRN
[2017-03-23] MEDS ORDERED: HYDROcodone-ACET 5/325MG TAB PO PRN
[2017-03-23] MEDS ORDERED: ACETAMINOPHEN 325 MG TAB PO PRN
[2017-03-23] MEDS ORDERED: AZITHROMYCIN 500MG/ 250ML 250 ML IV ONE
[2017-03-23] MEDS ORDERED: ONDANSETRON HCL 4 MG/2 ML VIAL IV PRN
[2017-03-23] MEDS ORDERED: PNEUMOCOCCAL VACC POLYS 25 MCG/0.5 ML VIAL IM ONE (04:45)
[2017-03-23] MEDS ORDERED: INFLUENZA QUAD 2017-2018 0.5 ML SYRG IM ONE (04:45)
[2017-03-23] MEDS ORDERED: FUROSEMIDE 20 MG TAB PO SCH (06:00)
[2017-03-23 08:07] LABS: Basophils # (auto) 0 uL; Basophils % (auto) 0.6 % (0.0-2.0); Eosinophils # (auto) 0 uL; Eosinophils % (auto) 0.4 % (0.0-7.0); Hematocrit 43.8 % (41.0-53.0); Hemoglobin 14.1 g/dL (13.5-17.5); Lymphocytes # (auto) 1.2 uL; Lymphocytes % (auto) 27.2 % (10.0-50.0); Mean Corpuscular Hemoglobin 31.4 pg (28.0-32.0); Mean Corpuscular Hgb Conc. 32.2 g/dL (32.0-36.0); Mean Corpuscular Volume 97.5 fL (80.0-100.0); Monocytes # (auto) 0.5 uL; Monocytes % (auto) 12.1 % (0.0-12.0); Neutrophils # (auto) 2.6 uL; Neutrophils % (auto) 59.7 % (37.0-80.0); Nucleated Red Blood Cells % 0.1 %; Platelet Count (auto) 85 10^3/uL (140-450); Red Cell Distribution Width 18.7 % (11.8-14.3); White Blood Cell 4.3 10^3/uL (4.4-10.8)
[2017-03-23 08:23] LABS: Albumin 2.7 g/dL (3.4-5.0); BUN/Creatinine Ratio 21.4; Bilirubin, Total 0.9 mg/dL (0.2-1.0); Calcium 8.6 mg/dL (8.5-10.1); Potassium 3.7 mmol/L (3.5-5.1); Total Protein 6.2 g/dL (6.4-8.2)
[2017-03-23] MEDS: cefTRIAXone 1GM/10ml IVPUSH 10 ML IV SCH (09:58)
[2017-03-23] MEDS: FAMOTIDINE 20 MG TAB PO SCH ×2 (09:59→21:37)
[2017-03-23] MEDS: CARVEDILOL 3.125 MG TAB PO SCH ×2 (09:59→21:37)
[2017-03-23] MEDS ORDERED: ENOXAPARIN SOD 30 MG/0.3 ML SYRINGE SC SCH (10:00)
[2017-03-23] MEDS ORDERED: AZITHROMYCIN 500MG/ 250ML 250 ML IV SCH (10:00)
[2017-03-23] MEDS: ENALAPRIL MALEATE 2.5 MG TAB PO SCH (10:00)
[2017-03-23] MEDS: ENOXAPARIN SOD 40 MG/0.4 ML SYRINGE SC SCH (15:45)
[2017-03-23] MEDS: FUROSEMIDE 40 MG/4 ML VIAL IV SCH (17:29)
[2017-03-23] MEDS: SPIRONOLACTONE 25 MG TAB PO SCH (17:29)
[2017-03-23] MEDS: ATORVASTATIN 20 MG TAB PO SCH (21:37)
[2017-03-23] MEDS: DOXYCYCLINE 100 MG TAB/CAP PO SCH (21:37)
[2017-03-24] MEDS: FUROSEMIDE 40 MG/4 ML VIAL IV SCH ×2 (05:19→18:01)
[2017-03-24] MEDS: SPIRONOLACTONE 25 MG TAB PO SCH ×2 (05:21→18:01)
[2017-03-24 05:28] VITALS: BP 108/58
[2017-03-24 09:00] VITALS: BP 111/50
[2017-03-24] MEDS: FAMOTIDINE 20 MG TAB PO SCH ×2 (09:42→22:16)
[2017-03-24] MEDS: DOXYCYCLINE 100 MG TAB/CAP PO SCH ×2 (09:42→22:17)
[2017-03-24] MEDS: ENALAPRIL MALEATE 2.5 MG TAB PO SCH (09:42)
[2017-03-24] MEDS: ENOXAPARIN SOD 40 MG/0.4 ML SYRINGE SC SCH (09:43)
[2017-03-24] MEDS: cefTRIAXone 1GM/10ml IVPUSH 10 ML IV SCH (09:44)
[2017-03-24] MEDS: CARVEDILOL 3.125 MG TAB PO SCH ×2 (09:46→22:17)
[2017-03-24 11:47] LABS: Basophils # (auto) 0 uL; Basophils % (auto) 0.6 % (0.0-2.0); Eosinophils # (auto) 0 uL; Eosinophils % (auto) 0.6 % (0.0-7.0); Hematocrit 42.8 % (41.0-53.0); Hemoglobin 13.6 g/dL (13.5-17.5); Lymphocytes # (auto) 0.9 uL; Lymphocytes % (auto) 21.2 % (10.0-50.0); Mean Corpuscular Hemoglobin 30.7 pg (28.0-32.0); Mean Corpuscular Hgb Conc. 31.7 g/dL (32.0-36.0); Mean Corpuscular Volume 96.8 fL (80.0-100.0); Monocytes # (auto) 0.5 uL; Monocytes % (auto) 11.5 % (0.0-12.0); Neutrophils # (auto) 2.8 uL; Neutrophils % (auto) 66.1 % (37.0-80.0); Nucleated Red Blood Cells % 0.3 %; Platelet Count (auto) 76 10^3/uL (140-450); Red Blood Cells 4.42 10^6/uL (4.5-5.90); Red Cell Distribution Width 18.2 % (11.8-14.3); White Blood Cell 4.3 10^3/uL (4.4-10.8)
[2017-03-24 12:13] LABS: Albumin 2.4 g/dL (3.4-5.0); BUN/Creatinine Ratio 23.5; Calcium 8.5 mg/dL (8.5-10.1); Potassium 3.6 mmol/L (3.5-5.1)
[2017-03-24 12:15] LABS: Bilirubin, Total 0.6 mg/dL (0.2-1.0); Total Protein 5.9 g/dL (6.4-8.2)
[2017-03-24 13:00] VITALS: BP 111/58
[2017-03-24 17:00] VITALS: BP 107/71
[2017-03-24 22:00] VITALS: BP 140/92
[2017-03-24] MEDS: ATORVASTATIN 20 MG TAB PO SCH (22:17)
[2017-03-25] MEDS: FUROSEMIDE 40 MG/4 ML VIAL IV SCH (05:31)
[2017-03-25] MEDS: SPIRONOLACTONE 25 MG TAB PO SCH (05:32)
[2017-03-25 06:00] VITALS: BP 101/60
[2017-03-25 07:13] LABS: Basophils # (auto) 0 uL; Basophils % (auto) 0.3 % (0.0-2.0); Eosinophils # (auto) 0 uL; Eosinophils % (auto) 0.4 % (0.0-7.0); Hematocrit 39.6 % (41.0-53.0); Lymphocytes # (auto) 0.9 uL; Lymphocytes % (auto) 15.9 % (10.0-50.0); Mean Corpuscular Hemoglobin 31.7 pg (28.0-32.0); Mean Corpuscular Hgb Conc. 32.8 g/dL (32.0-36.0); Mean Corpuscular Volume 96.8 fL (80.0-100.0); Monocytes # (auto) 0.7 uL; Monocytes % (auto) 12.6 % (0.0-12.0); Neutrophils # (auto) 4.1 uL; Neutrophils % (auto) 70.8 % (37.0-80.0); Platelet Count (auto) 69 10^3/uL (140-450); Red Blood Cells 4.09 10^6/uL (4.5-5.90); Red Cell Distribution Width 18.1 % (11.8-14.3); White Blood Cell 5.7 10^3/uL (4.4-10.8)
[2017-03-25 07:50] LABS: Albumin 2.2 g/dL (3.4-5.0); BUN/Creatinine Ratio 20.9; Bilirubin, Total 0.8 mg/dL (0.2-1.0); Calcium 8.4 mg/dL (8.5-10.1); Potassium 3.3 mmol/L (3.5-5.1); Total Protein 5.4 g/dL (6.4-8.2)
[2017-03-25 09:02] VITALS: BP 108/61
[2017-03-25] MEDS: cefTRIAXone 1GM/10ml IVPUSH 10 ML IV SCH (09:40)
[2017-03-25] MEDS: CARVEDILOL 3.125 MG TAB PO SCH (09:41)
[2017-03-25] MEDS: ENALAPRIL MALEATE 2.5 MG TAB PO SCH (09:41)
[2017-03-25] MEDS: FAMOTIDINE 20 MG TAB PO SCH (09:43)
[2017-03-25] MEDS: ENOXAPARIN SOD 40 MG/0.4 ML SYRINGE SC SCH (09:44)
[2017-03-25] MEDS: DOXYCYCLINE 100 MG TAB/CAP PO SCH (09:44)
[2017-03-25] MEDS ORDERED: POTASSIUM CHL 10% (20 MEQ/15ML) 15ml ORAL SOLN PO ONE (09:45)
[2017-03-25 10:45] VITALS: BP 108/61
[2017-03-25 13:00] VITALS: BP 113/70
== END 2017-03-25 16:18 | disposition home or self-care (01) | DRG 291 ==
LOC: EDBD 14:23 → ER 14:23 → TELE 14:24 → MERGE 14:24 → TELE-EAST 03-23 02:30
PROVIDERS: ADMIT Nurse Practitioner; ATTEND Family Medicine
DX: I11.0 Hypertensive heart disease with heart failure (principal); J96.00 Acute respiratory failure, unspecified whether with hypoxia or hypercapnia; J18.9 Pneumonia, unspecified organism; I50.43 Acute on chronic combined systolic (congestive) and diastolic (congestive) heart failure; E87.6 Hypokalemia; I25.10 Atherosclerotic heart disease of native coronary artery without angina pectoris; R94.6 Abnormal results of thyroid function studies; I49.3 Ventricular premature depolarization; G47.00 Insomnia, unspecified; Z82.49 Family history of ischemic heart disease and other diseases of the circulatory system; Z23 Encounter for immunization
CPT/HCPCS: 36415; 71045; 80053; 82962; 83605; 83735; 83880; 84443; 84484; 85025; 85610; 85730; 87040; 93005; 93306; 94761; 96365; 96375; 97163